=== PATIENT | female | born 1970 | race Caucasian/White ===

== ENCOUNTER → 2020-01-25 12:02 | Outpatient (BNVA) | payer BC, SELFPAY | PROVIDERS: PCP Nurse Practitioner; Visit Provider Nurse Practitioner | DX: E11.65 Type 2 diabetes mellitus with hyperglycemia (principal); I10 Essential (primary) hypertension; F41.9 Anxiety disorder, unspecified; R00.2 Palpitations; F32.9 Major depressive disorder, single episode, unspecified | CPT/HCPCS: 80053; 80061; 82044; 83036; 83721; 84443 ==

== ENCOUNTER → 2020-04-26 11:09 | Outpatient (BNVA) | payer BC, SELFPAY | PROVIDERS: PCP Nurse Practitioner; Visit Provider Nurse Practitioner | DX: E11.65 Type 2 diabetes mellitus with hyperglycemia (principal) | CPT/HCPCS: 80053; 83036 ==

== ENCOUNTER → 2020-07-20 10:01 | Outpatient (BNVA) | payer OTHER, SELFPAY | PROVIDERS: PCP Nurse Practitioner; Visit Provider Nurse Practitioner Family | DX: Z20.828 Contact with and (suspected) exposure to other viral communicable diseases (principal) | CPT/HCPCS: 87635 ==

== ENCOUNTER → 2020-09-14 09:04 | Outpatient (BNVA) | payer OTHER, SELFPAY | PROVIDERS: PCP Nurse Practitioner; Visit Provider Nurse Practitioner | DX: E11.65 Type 2 diabetes mellitus with hyperglycemia (principal); I10 Essential (primary) hypertension; F41.9 Anxiety disorder, unspecified; F32.9 Major depressive disorder, single episode, unspecified | CPT/HCPCS: 80053; 80061; 82043; 83036; 84443 ==

== ENCOUNTER 2020-10-24 12:41 | Outpatient (CLI) | payer OTHER, SELFPAY ==
--- NOTE | 2020-10-24 12:45 | USCV_ITS ---
Jerel Mercy Age: 50 Gender: F : 1970 Exam Date: 10/24/2020 13:10 Ordering Phys: Jane Vera MD ([email or web address]) Technologist: SHEREE Exam Location: [facility] – [place] Indication: OTHER CHEST PAIN BP: 157 / 88 HR: 89 Rhythm: Sinus Technical Quality: Technically difficult study MEASUREMENTS (Male / Female) Normal Values 2D ECHO LV Diastolic Diameter PLAX 3.1 cm 4.2 - 5.9 / 3.9 - 5.3 cm LV Systolic Diameter PLAX 2.1 cm IVS Diastolic Thickness 1.7 cm 0.6 - 1.0 / 0.6 - 0.9 cm IVS Systolic Thickness 2.3 cm LVPW Diastolic Thickness 1.3 cm 0.6 - 1.0 / 0.6 - 0.9 cm LVPW Systolic Thickness 1.3 cm LVOT Diameter 2.0 cm LV Ejection Fraction 2D Teich 59.4 % LV Ejection Fraction MOD 2C 73.7 % LV Ejection Fraction 2C AL 72.5 % LA Diameter 3.1 cm LA Width 3.3 cm LA Height 4.4 cm RA Width 3.5 cm RA Height 4.7 cm Aorta at Sinotubular Diameter 2.9 cm M-MODE LV Diastolic Diameter MM 5.0 cm 4.2 - 5.9 / 3.9 - 5.3 cm LV Systolic Diameter MM 3.5 cm LV Ejection Fraction MM Teich 56.9 % IVS Diastolic Thickness MM 0.6 cm 0.6 - 1.0 / 0.6 - 0.9 cm IVS Systolic Thickness MM 1.0 cm LVPW Diastolic Thickness MM 0.6 cm 0.6 - 1.0 / 0.6 - 0.9 cm LVPW Systolic Thickness MM 1.3 cm Aortic Annulus Diameter 2.7 cm LA Ao Ratio MM 1.1 MV E Point Septal Separation 0.5 cm DOPPLER AV Peak Velocity 167.0 cm/s LVOT Peak Velocity 129.0 cm/s AV Area Cont Eq vti 2.0 cm squared AV Area Cont Eq pk 2.5 cm squared MV Area PHT 3.1 cm squared Mitral E to A Ratio 0.8 MV E' Velocity 46.0 cm/s Mitral E to MV E' Ratio 7.2 Mitral E to LV E' Lateral Ratio 6.5 Mitral E to LV E' Septal Ratio 8.1 TR Peak Velocity 226.7 cm/s TR Peak Gradient 20.6 mmHg TR Mean Velocity 175.2 cm/s TR Mean Gradient 13.2 mmHg TR Velocity Time Integral 59.1 cm Right Atrial Pressure 3.0 mmHg Pulmonary Artery Systolic Pressu 23.6 mmHg PV Peak Velocity 95.0 cm/s FINDINGS Left Ventricle Normal left ventricular size and systolic function, EF 66 %. Mild left ventricular hypertrophy. No regional wall motion abnormalities. Right Ventricle The right ventricle is normal in size and function. Right Atrium The right atrium is normal in size. Left Atrium The left atrium is normal in size. Mitral Valve Thickened mitral valve. Moderate mitral annular calcification. Aortic Valve Thickened aortic valve. Tricuspid Valve Trace tricuspid valve regurgitation. Pulmonic Valve No gross abnormalities noted Pericardium Normal pericardium without effusion. Aorta Normal ascending aorta dimension. CONCLUSIONS Normal left ventricular size and systolic function, EF 66 %. Mild left ventricular hypertrophy. No regional wall motion abnormalities. Thickened mitral valve. Moderate mitral annular calcification. Thickened aortic valve. Trace tricuspid valve regurgitation. There is no pericardial effusion. There are no intracardiac masses. No previous study is available for comparison. Dr Jane Vera MD [facility] (Electronically Signed) Final Date: 25 October 2020 08:20 S
== END 2020-10-24 12:42 | disposition home or self-care (01) ==
LOC: RAD 12:43
PROVIDERS: PCP Nurse Practitioner; Visit Provider Internal Medicine Cardiovascular Disease
DX: R07.89 Other chest pain (principal); I08.3 Combined rheumatic disorders of mitral, aortic and tricuspid valves
CPT/HCPCS: 93306

== ENCOUNTER 2020-12-06 13:41 | Outpatient (CLI) | payer OTHER, SELFPAY ==
--- NOTE | 2020-12-06 13:44 | MM_ITS ---
WS: [id number] BILATERAL SCREENING DIGITAL MAMMOGRAM WITH CAD HISTORY: SCREENING COMPARISON: None available. Bilateral CC and MLO views submitted. Computer aided detection analyzed. Breast composition: There are scattered areas of fibroglandular density. No suspicious masses, microc alcifications or architectural distortion. Benign scattered calcifications in each breast. MM/[id number] IMPRESSION: BI-RADS: 2-Benign FOLLOW UP: 1 Year Follow-up
== END 2020-12-06 13:42 | disposition home or self-care (01) ==
LOC: RADSHAW 13:42
PROVIDERS: PCP Nurse Practitioner; Visit Provider Nurse Practitioner
DX: Z12.31 Encounter for screening mammogram for malignant neoplasm of breast (principal)
CPT/HCPCS: 77067

== ENCOUNTER → 2021-02-05 10:01 | Outpatient (BNVA) | payer OTHER, SELFPAY | PROVIDERS: PCP Nurse Practitioner; Visit Provider Nurse Practitioner | DX: E11.65 Type 2 diabetes mellitus with hyperglycemia (principal) | CPT/HCPCS: 80053; 83036 ==

== ENCOUNTER → 2021-02-11 10:23 | Outpatient (BNVA) | payer OTHER, SELFPAY | PROVIDERS: PCP Nurse Practitioner; Visit Provider Nurse Practitioner Family | DX: R30.0 Dysuria (principal) | CPT/HCPCS: 81003; 87077; 87086; 87184 ==

== ENCOUNTER → 2021-02-20 09:22 | Outpatient (BNVA) | payer OTHER, SELFPAY | PROVIDERS: PCP Nurse Practitioner; Visit Provider Nurse Practitioner Family | DX: N39.0 Urinary tract infection, site not specified (principal) | CPT/HCPCS: 81000 ==